=== PATIENT | male | born 1980 | race Caucasian/White ===

== ENCOUNTER → 2017-07-06 | Outpatient (CLI) | payer BC | END | disposition home or self-care (01) | LOC: RAD 12:52 | DX: D16.9 Benign neoplasm of bone and articular cartilage, unspecified (principal); R93.7 Abnormal findings on diagnostic imaging of other parts of musculoskeletal system | CPT/HCPCS: 73700 ==

== ENCOUNTER → 2017-07-14 | Outpatient (CLI) | payer BC | END | disposition home or self-care (01) | LOC: NUC 10:00 | DX: D16.22 Benign neoplasm of long bones of left lower limb (principal); M89.9 Disorder of bone, unspecified | CPT/HCPCS: 78306; A9503 ==